=== PATIENT | female | born 1975 | race Caucasian/White ===

== ENCOUNTER 2016-10-18 14:06 | Emergency (ER) | payer OTHER ==
[~2016-10-18] VITALS: Wt 88.0 kg
[~2016-10-18 14:06] MED LIST: CEPH-443 PO; DOCU-144 PO; FER325 PO; GABA300C16 PO; HYDR-906 PO; IBUP-1542 PO; IBUP400T22 PO; LORA-441 PO; METF500T4 PO; OMEP40CA6 PO; SITA100T8 PO; VALA100057 PO
[2016-10-18 15:44] LABS: ADD UMIC NO; URINE BILIRUBIN (Dip) NEGATIVE (NEGATIVE); URINE BLOOD (Dip) NEGATIVE (NEGATIVE); URINE COLOR LT. YELLOW (YELLOW); URINE GLUCOSE (Dip) NEGATIVE (NEGATIVE); URINE KETONES (Dip) NEGATIVE (NEGATIVE); URINE LEUKOCYTE ESTERASE (Dip) NEGATIVE (NEGATIVE); URINE NITRITE (Dip) NEGATIVE (NEGATIVE); URINE TOTAL PROTEIN (Dip) NEGATIVE (NEGATIVE); URINE UROBILINOGEN (Dip) 0.2 E.U./dL (0.1-1.0)
[2016-10-18 15:59] LABS: ADD SCAN DIFF NO
[2016-10-18 16:01] LABS: BASOPHILS % 0.5 % (0.0-2.0); EOSINOPHILS # 0.1 10^3/ul (0.0-0.5); EOSINOPHILS % 1.2 % (0.0-7.0); HEMATOCRIT 35.9 % (37.0-47.0); HEMOGLOBIN 11.9 g/dl (12.0-16.0); LYMPHOCYTES # 2.2 10^3/ul (0.8-2.9); LYMPHOCYTES % 27.6 % (15.0-51.0); MEAN CORPUSCULAR HGB CONC 33.1 g/dl (32.0-37.0); MEAN CORPUSCULAR VOLUME 84.5 fl (82.0-101.0); MEAN PLATELET VOLUME 9.9 fl (7.4-10.4); MONOCYTE # 0.5 10^3/ul (0.3-0.9); MONOCYTES % 6.7 % (0.0-11.0); NEUTROPHILS % 63.7 % (39.0-77.0); PLATELET COUNT 286 10^3/UL (140-415); RED BLOOD COUNT 4.25 10^6/ul (4.20-5.40); RED CELL DISTRIBUTION WIDTH 16.6 % (11.5-14.5); WHITE BLOOD COUNT 7.8 10^3/ul (4.8-10.8)
[2016-10-18 16:24] LABS: ALBUMIN 4.6 g/dl (3.3-4.9); ALBUMIN/GLOBULIN RATIO 1.27; BILIRUBIN,INDIRECT 0.4 mg/dl (0-1.1); BILIRUBIN,TOTAL 0.4 mg/dl (0.2-1.3); CALCIUM 9.3 mg/dl (8.4-10.2); CREATININE 0.44 mg/dl (0.44-1.00); POTASSIUM 3.9 mmol/L (3.5-5.1); TOTAL PROTEIN 8.2 g/dl (6.1-8.1)
[2016-10-18] MEDS ORDERED: BEN25 PO (16:32)
--- NOTE | 2016-10-18 16:35 | ERD ---
ER Documentation Chief Complaint Date/Time DATE: 10/18/16 TIME: 16:33 Chief Complaint DIZZINESS, NUMBNESS, ONSET 2 DAYS, HEADACHE HPI This 5-year-old female presents with sensation of swelling on her face and hands with some numbness in her face and hands. She has mild bitemporal headache. She denies any fevers, vomiting, shortness of the chest pain. Patient has a history of anemia which improved with iron treatment. Her last blood work was approximately 2 months ago at 11 by report. She denies any current significant vaginal bleeding, vomiting, abdominal pain, urinary complaints. ROS All systems reviewed and are negative except as per history of present illness. Medications Home Meds Active Scripts Diphenhydramine Hcl* (Benadryl*) 25 Mg Cap, 25 MG PO Q6, #15 CAP Prov:MONIKA SEARS MD 10/18/16 Ibuprofen* (Motrin*) 600 Mg Tab, 600 MG PO Q6H Y for PAIN AND OR ELEVATED TEMP, #30 TAB Prov:JUAN ALVA NP 05/19/16 Cephalexin* (Keflex*) 500 Mg Capsule, 500 MG PO QID for 7 Days, CAP Prov:JUAN ALVA NP 05/19/16 Docusate Sodium* (Colace*) 100 Mg Capsule, 100 MG PO TID, #30 CAP Prov:JUAN ALVA NP 05/19/16 Ferrous Sulfate* (Ferrous Sulfate*) 325 Mg Tabec, 325 MG PO BID, #60 TAB Prov:JUAN ALVA NP 05/19/16 Ibuprofen* (Motrin*) 600 Mg Tab, 600 MG PO Q6, #30 TAB Prov:FREDIS GARCIA PA-C 05/11/16 Hydrocodone/Acetaminophen ([place] 5-325 Tablet) 1 Each Tablet, 1 TAB PO Q6H Y for PAIN, #20 TAB Prov:FREDIS GARCIA PA-C 05/11/16 Hydrocodone/Acetaminophen ([place] 5-325 Tablet) 1 Each Tablet, 1 TAB PO Q6H Y for PAIN, #20 TAB Prov:JUAN ALVA NP 02/14/16 Ibuprofen* (Motrin*) 400 Mg Tab, 400 MG PO Q6H Y for PAIN AND OR ELEVATED TEMP, #30 TAB Prov:JUAN ALVA NP 02/14/16 Gabapentin* (Gabapentin*) 300 Mg Capsule, 300 MG PO QHS, #20 CAP Take 1 tablet at night on day one, then take 1 tablet twice a day on day [address] [facility] for patient Prov:PATSY HIDALGO PA-C 12/30/15 Ibuprofen* (Motrin*) 600 Mg Tab, 600 MG PO Q6H Y for PAIN AND OR ELEVATED TEMP, #30 TAB Prov:PATSY HIDALGO PA-C 12/30/15 Ibuprofen* (Motrin*) 600 Mg Tab, 600 MG PO Q6, #14 TAB Prov:MONIKA SEARS MD 12/18/15 Lorazepam* (Ativan*) 0.5 Mg Tablet, 0.5 MG PO Q8, #10 TAB Prov:MONIKA SEARS MD 12/18/15 Valacyclovir Hcl* (Valtrex*) 1,000 Mg Tablet, 1000 MG PO TID for 7 Days Prov:ARI CALLAWAY 01/05/15 Reported Medications Omeprazole* (Omeprazole*) 40 Mg Capsule.dr, 40 MG PO DAILY, CAP 10/28/14 Metformin* (Glucophage*) 500 Mg Tab, 500 MG PO WITH MEALS, TAB 10/28/14 Sitagliptin* (Januvia*) 100 Mg Tablet, 100 MG PO DAILY, TAB 10/28/14 Allergies Allergies: Coded Allergies: No Known Drug Allergy (Verified Allergy, Unknown, 05/19/16) PMhx/Soc History of Surgery: Yes (CHOLECYSTECTOMY, C/SECTION, UMB HERNIA) Anesthesia Reaction: No Hx Neurological Disorder: No Hx Respiratory Disorders: No Hx Cardiac Disorders: No Hx Psychiatric Problems: No Hx Miscellaneous Medical Probl: Yes (DM) Hx Alcohol Use: No Hx Substance Use: No Hx Tobacco Use: No Smoking Status: Never smoker Physical Exam Vitals Vital Signs Date Time Temp Pulse Resp B/P Pulse Ox O2 Delivery O2 Flow Rate FiO2 10/18/16 14:10 98.1 85 17 149/79 98 Physical Exam Const: [] Alert, [id number] per Head: Atraumatic Eyes: Normal Conjunctiva ENT: Normal External Ears, Nose and Mouth. Possible very minimal swelling of the face but may be normal variant. Neck: Full range of motion..~ No meningismus. Resp: Clear to auscultation bilaterally Cardio: Regular rate and rhythm, no murmurs Abd: Soft, non tender, non distended. Normal bowel sounds Skin: No petechiae or rashes Back: No midline or flank tenderness Ext: No cyanosis, or edema. Again possible very minimal swelling bilateral hands and upper extremities but may be normal variant. There is no erythema or warmth or restricted range of motion weakness Neur: Awake and alert Psych: Normal Mood and Affect Result Diagram: 10/18/16 1540 10/18/16 1529 Results 24 hrs Laboratory Tests Test 10/18/16 15:29 10/18/16 15:36 10/18/16 15:40 Sodium Level 135mmol/L Potassium Level 3.9mmol/L Chloride Level 104mmol/L Carbon Dioxide Level 22mmol/L Anion Gap 13 Blood Urea Nitrogen 9mg/dl Creatinine 0.44mg/dl Glucose Level 161mg/dl Calcium Level 9.3mg/dl Total Bilirubin 0.4mg/dl Direct Bilirubin 0.00mg/dl Indirect Bilirubin 0.4mg/dl Aspartate Amino Transf (AST/SGOT) 79IU/L Alanine Aminotransferase (ALT/SGPT) 55IU/L Alkaline Phosphatase 74IU/L Total Protein 8.2g/dl Albumin 4.6g/dl Globulin 3.60g/dl Albumin/Globulin Ratio 1.27 Urine Color LT. YELLOW Urine Clarity CLEAR Urine pH 6.5 Urine Specific [place] <=1.005 Urine Ketones NEGATIVE Urine Nitrite NEGATIVE Urine Bilirubin NEGATIVE Urine Urobilinogen 0.2 E.U./dL Urine Leukocyte Esterase NEGATIVE Urine Hemoglobin NEGATIVE Urine Glucose NEGATIVE% Urine Total Protein NEGATIVE White Blood Count 7.810^3/ul Red Blood Count 4.2510^6/ul Hemoglobin 11.9g/dl Hematocrit 35.9% Mean Corpuscular Volume 84.5fl Mean Corpuscular Hemoglobin 28.0pg Mean Corpuscular Hemoglobin Concent 33.1g/dl Red Cell Distribution Width 16.6% Platelet Count 26614^3/UL Mean Platelet Volume 9.9fl Neutrophils % 63.7% Lymphocytes % 27.6% Monocytes % 6.7% Eosinophils % 1.2% Basophils % 0.5% Nucleated Red Blood Cells % 0.0/100WBC Neutrophils # 5.010^3/ul Lymphocytes # 2.210^3/ul Monocytes # 0.510^3/ul Eosinophils # 0.110^3/ul Basophils # 0.010^3/ul Nucleated Red Blood Cells # 0.010^3/ul Procedures/MDM CBC shows a hemoglobin 11.9, otherwise normal. CMP is normal. Urine shows no protein, leukocytes, nitrites or glucose. Patient presents with some mild swelling in the face and hands bilaterally with likely secondary paresthesias. Signs or symptoms do not suggest central nervous system lesions, hypOproteinemia sepsis, CHF, anemia, anaphylaxis, respiratory distress, additional emergent causes of presenting complaints. Patient was treated with Benadryl and further observation at home. The patient was stable with no new complaints during the ER course. Clinically, there is no current evidence to suggest meningitis, sepsis, acute abdomen, pneumonia, acute coronary syndrome, pulmonary embolism, or any other emergent condition appearing to require further evaluation or hospitalization. The patient should certainly return for any new or worsening symptoms per the aftercare instructions. They should otherwise follow-up with her primary care doctor for reevaluation this week. Departure Diagnosis: Primary Impression: Swelling Condition: Stable Patient Instructions: Symptoms With Uncertain Cause Referrals: [facility] Usted se hawk hecho un examen mdico de control que le indica que no est en marck condicin que requiera tratamiento urgente en el Departamento de Emergencia. Un estudio ms profundo y el tratamiento de mclaughlin condicin pueden esperar sin ningn riesgo hasta que usted sea atendida/o en el consultorio de mclaughlin mdico o marck cl paris. Es responsabilidad suya arreglar marck vinay para el seguimiento del elisa. MANEJO DE CONDICIONES NO URGENTES EN EL FUTURO 1) Si usted tiene un mdico de atencin primaria: Usted debera llamar a mclaughlin mdico de atencin primaria antes de venir al departamento de emergencia. Despus de las horas de consultorio, mclaughlin doctor o mclaughlin asociado/a est disponible por telfono. El mdico o enfermero de destiny en el servicio telefnico puede asesorarle por paras medio para atender el problema, o elisa contrario se puede programar marck vinay. 2) Si usted no tiene un mdico de atencin primaria: Llame al mdico o clnica de referencia que aparece abajo ingrid las horas de consultorio para hacer marck vinay para que le vean. CLINICAS: [facility] [phone] [facility] [phone] [facility] [phone] [facility] [phone] [place] [phone] [facility]. [phone] [address] Additional Instructions: Examines normal hoy. POSIBLEMENTE ALLERGIA. Cheque otro vez con mclaughlin doctor primario en el proximo le or regresa para mas o nueva simptomas. MONIKA SEARS MD Oct 18, 2016 16:35
[2016-10-18 16:38] VITALS: BP 126/74; PULSE 77; RESP 19; TEMP 98.2
== END 2016-10-18 16:39 | disposition home or self-care (01) ==
LOC: FTE 14:06
DX: M79.89 Other specified soft tissue disorders (principal); E11.9 Type 2 diabetes mellitus without complications; Z79.84 Long term (current) use of oral hypoglycemic drugs
CPT/HCPCS: 80053; 81003; 85025; 99283

== ENCOUNTER 2016-12-12 13:53 | Emergency (ER) | payer OTHER ==
[~2016-12-12] VITALS: Ht 162.6 cm; Wt 86.5 kg
[~2016-12-12 13:53] MED LIST changes: +BEN25 PO
[2016-12-12 13:56] VITALS: Ht 162.6 cm; Wt 86.5 kg
[2016-12-12 15:42] LABS: ALBUMIN 4.5 g/dl (3.3-4.9); ALBUMIN/GLOBULIN RATIO 1.12; BILIRUBIN,INDIRECT 0.3 mg/dl (0-1.1); BILIRUBIN,TOTAL 0.3 mg/dl (0.2-1.3); CALCIUM 9.6 mg/dl (8.4-10.2); CREATININE 0.5 mg/dl (0.44-1.00); POTASSIUM 4.2 mmol/L (3.5-5.1); TOTAL PROTEIN 8.5 g/dl (6.1-8.1)
[2016-12-12 17:02] LABS: BASOPHILS % 0.5 % (0.0-2.0); EOSINOPHILS # 0.1 10^3/ul (0.0-0.5); EOSINOPHILS % 0.7 % (0.0-7.0); HEMATOCRIT 36.3 % (37.0-47.0); HEMOGLOBIN 12.1 g/dl (12.0-16.0); LYMPHOCYTES % 24.9 % (15.0-51.0); MEAN CORPUSCULAR HEMOGLOBIN 28.8 pg (29.0-33.0); MEAN CORPUSCULAR HGB CONC 33.3 g/dl (32.0-37.0); MEAN CORPUSCULAR VOLUME 86.4 fl (82.0-101.0); MEAN PLATELET VOLUME 10.8 fl (7.4-10.4); MONOCYTE # 0.6 10^3/ul (0.3-0.9); MONOCYTES % 6.8 % (0.0-11.0); NEUTROPHIL # 5.4 10^3/ul (1.6-7.5); NEUTROPHILS % 66.7 % (39.0-77.0); PLATELET COUNT 300 10^3/UL (140-415); WHITE BLOOD COUNT 8.1 10^3/ul (4.8-10.8)
--- NOTE | 2016-12-12 17:08 | ERD ---
ER Documentation Chief Complaint Date/Time DATE: 12/12/16 TIME: 17:08 Chief Complaint bilat leg numbness x today HPI This is a 41-year-old female with history of diabetes type 2 on metformin and neuropathy presenting to the emergency department complaining of feeling numbness and tension in her legs bilaterally. Patient states that she feels like as if there is cramping in her upper thighs bilaterally rating it 9 out of 10. She states that originally she had numbness in her right lower leg but now she feels in her left leg. Patient denies any other neuro deficits. She denies any weakness or restricted range of motion ROS All systems reviewed and are negative except as per history of present illness. Medications Home Meds Active Scripts Diphenhydramine Hcl* (Benadryl*) 25 Mg Cap, 25 MG PO Q6, #15 CAP Prov:MONIKA SEARS MD 10/18/16 Ibuprofen* (Motrin*) 600 Mg Tab, 600 MG PO Q6H Y for PAIN AND OR ELEVATED TEMP, #30 TAB Prov:JUAN ALVA NP 05/19/16 Cephalexin* (Keflex*) 500 Mg Capsule, 500 MG PO QID for 7 Days, CAP Prov:JUAN ALVA NP 05/19/16 Docusate Sodium* (Colace*) 100 Mg Capsule, 100 MG PO TID, #30 CAP Prov:JUAN ALVA NP 05/19/16 Ferrous Sulfate* (Ferrous Sulfate*) 325 Mg Tabec, 325 MG PO BID, #60 TAB Prov:JUAN ALVA NP 05/19/16 Ibuprofen* (Motrin*) 600 Mg Tab, 600 MG PO Q6, #30 TAB Prov:FREDIS GARCIA PA-C 05/11/16 Hydrocodone/Acetaminophen ([place] 5-325 Tablet) 1 Each Tablet, 1 TAB PO Q6H Y for PAIN, #20 TAB Prov:FREDIS GARCIA PA-C 05/11/16 Hydrocodone/Acetaminophen ([place] 5-325 Tablet) 1 Each Tablet, 1 TAB PO Q6H Y for PAIN, #20 TAB Prov:JUAN ALVA NP 02/14/16 Ibuprofen* (Motrin*) 400 Mg Tab, 400 MG PO Q6H Y for PAIN AND OR ELEVATED TEMP, #30 TAB Prov:JUAN ALVA NP 02/14/16 Gabapentin* (Gabapentin*) 300 Mg Capsule, 300 MG PO QHS, #20 CAP Take 1 tablet at night on day one, then take 1 tablet twice a day on day 2 Please translate to turkish for patient Prov:PATSY HIDALGO PA-C 12/30/15 Ibuprofen* (Motrin*) 600 Mg Tab, 600 MG PO Q6H Y for PAIN AND OR ELEVATED TEMP, #30 TAB Prov:PATSY HIDALGO PA-C 12/30/15 Ibuprofen* (Motrin*) 600 Mg Tab, 600 MG PO Q6, #14 TAB Prov:MONIKA SEARS MD 12/18/15 Lorazepam* (Ativan*) 0.5 Mg Tablet, 0.5 MG PO Q8, #10 TAB Prov:MONIKA SEARS MD 12/18/15 Valacyclovir Hcl* (Valtrex*) 1,000 Mg Tablet, 1000 MG PO TID for 7 Days Prov:ARI CALLAWAY 01/05/15 Reported Medications Omeprazole* (Omeprazole*) 40 Mg Capsule.dr, 40 MG PO DAILY, CAP 10/28/14 Metformin* (Glucophage*) 500 Mg Tab, 500 MG PO WITH MEALS, TAB 10/28/14 Sitagliptin* (Januvia*) 100 Mg Tablet, 100 MG PO DAILY, TAB 10/28/14 Allergies Allergies: Coded Allergies: No Known Drug Allergy (Verified Allergy, Unknown, 12/12/16) PMhx/Soc History of Surgery: Yes (CHOLECYSTECTOMY, C/SECTION, UMB HERNIA) Anesthesia Reaction: No Hx Neurological Disorder: No Hx Respiratory Disorders: No Hx Cardiac Disorders: No Hx Psychiatric Problems: No Hx Miscellaneous Medical Probl: Yes (DM) Hx Alcohol Use: No Hx Substance Use: No Hx Tobacco Use: No Physical Exam Vitals Vital Signs Date Time Temp Pulse Resp B/P Pulse Ox O2 Delivery O2 Flow Rate FiO2 12/12/16 17:09 97.3 72 16 140/78 97 Room Air 12/12/16 13:56 97.3 79 18 126/73 79 Physical Exam GENERAL: well-developed/well-nourished, in no apparent distress, non-toxic appearing HENT: NC/AT, bilateral tympanic membrane is normal with good cone of light, nares patent, oropharynx clear without exudates EYES: Conjunctiva normal, PERRLA, EOMI, no nystagmus noted NECK: Supple, no lymphadenopathy PULM: CTA bilaterally, no rales, rhonchi, or wheezing heard CV: Normal S1S2, RRR, good capillary refill GI: Soft, non-distended, normal bowel sounds, non-tender BACK: No midline tenderness, no masses, No CVAT EXT: No clubbing, cyanosis, or edema NEURO: Alert and orientated to person, place, and time. CN II-IIX intact. Gait and coordination were normal. Hand language interpreter strength were equal and within normal limits SKIN: Intact, normal turgor Normal exam PSYCH: Normal mood and mentation, patient denied SI Result Diagram: 12/12/16 1513 12/12/16 1513 Results 24 hrs Laboratory Tests Test 12/12/16 15:13 White Blood Count 8.110^3/ul Red Blood Count 4.2010^6/ul Hemoglobin 12.1g/dl Hematocrit 36.3% Mean Corpuscular Volume 86.4fl Mean Corpuscular Hemoglobin 28.8pg Mean Corpuscular Hemoglobin Concent 33.3g/dl Red Cell Distribution Width 14.0% Platelet Count 00828^3/UL Mean Platelet Volume 10.8fl Neutrophils % 66.7% Lymphocytes % 24.9% Monocytes % 6.8% Eosinophils % 0.7% Basophils % 0.5% Nucleated Red Blood Cells % 0.0/100WBC Neutrophils # 5.410^3/ul Lymphocytes # 2.010^3/ul Monocytes # 0.610^3/ul Eosinophils # 0.110^3/ul Basophils # 0.010^3/ul Nucleated Red Blood Cells # 0.010^3/ul Sodium Level 138mmol/L Potassium Level 4.2mmol/L Chloride Level 103mmol/L Carbon Dioxide Level 22mmol/L Anion Gap 17 Blood Urea Nitrogen 11mg/dl Creatinine 0.50mg/dl Glucose Level 233mg/dl Calcium Level 9.6mg/dl Total Bilirubin 0.3mg/dl Direct Bilirubin 0.00mg/dl Indirect Bilirubin 0.3mg/dl Aspartate Amino Transf (AST/SGOT) 86IU/L Alanine Aminotransferase (ALT/SGPT) 64IU/L Alkaline Phosphatase 73IU/L Total Protein 8.5g/dl Albumin 4.5g/dl Globulin 4.00g/dl Albumin/Globulin Ratio 1.12 Procedures/MDM This is a 41-year-old female with a history of diabetes type 2 on metformin and neuropathy presents to the emergency department complaining of bilateral leg numbness which is likely due to her neuropathy. There was no evidence of any feet ulcers or infections on examination. There was no evidence of elevated creatinine that can be due to metformin. Patient's electro lites are normal. CBC did not show evidence of leukocytosis or anemia. Patient was instructed to continue gabapentin and to follow-up with her primary care physician for possible medication change. Discussed return to the ER for any worsening symptoms patient understands and agrees to this plan Departure Diagnosis: Primary Impression: Diabetic neuropathy Diabetes mellitus type: other specified (including MARIAN) Diabetes mellitus complication detail: diabetic polyneuropathy Qualified Code: E13.42 - Diabetic polyneuropathy associated with other specified diabetes mellitus Additional Impression: Numbness in feet Condition: Stable Patient Instructions: What Is Peripheral Neuropathy?, Treating Peripheral Neuropathy, Neuropathy, Peripheral Additional Instructions: Visite a mclaughlin braeden calabrese para un EXAMEN.Regrese a estas instalaciones si no se mejora stephanie esperbamos o stephanie le dijimos. Regrese a estas instalaciones si no se mejora stephanei esperbamos o stephanie le dijimos. PATSY HIDALGO PA-C Dec 12, 2016 17:08
[2016-12-12 17:09] VITALS: BP 140/78; PULSE 72; RESP 16; TEMP 97.3
== END 2016-12-12 17:10 | disposition home or self-care (01) ==
LOC: FTE 13:53
DX: E13.42 Other specified diabetes mellitus with diabetic polyneuropathy (principal); Z79.84 Long term (current) use of oral hypoglycemic drugs
CPT/HCPCS: 36415; 80053; 85025; Z7502; 99283

== ENCOUNTER 2017-02-21 20:58 | Emergency (ER) | payer OTHER ==
[~2017-02-21] VITALS: Ht 160 cm; Wt 87.5 kg
[2017-02-21 21:00] VITALS: Ht 160 cm; Wt 87.5 kg
--- NOTE | 2017-02-22 00:18 | ERD ---
ER Documentation Chief Complaint Date/Time DATE: 02/22/17 TIME: 00:14 Chief Complaint back pain x 2 weeks, denies injury HPI Patient is a 41-year-old female who presents with sudden onset, intermittent bilateral back pain for the last 2 weeks. She denies dysuria, fever, leg weakness or numbness. She reports that for the last 2 days she has episodes of back pain radiating to her chest that last less than 1 minute at the time and often only a few seconds. It feels like a tightness. She denies shortness of breath, cough, radiation of pain. She denies vomiting or diaphoresis. She denies fever. She has been taking ibuprofen without significant relief. She denies taking contraceptive pills or hormone replacement. She denies recent surgery. ROS All systems reviewed and are negative except as per history of present illness. Medications Home Meds Active Scripts Cyclobenzaprine Hcl* (Cyclobenzaprine Hcl*) 10 Mg Tablet, 10 MG PO TID, #15 TAB Prov:SANDY COSME MD 02/22/17 Ferrous Sulfate* (Ferrous Sulfate*) 325 Mg Tabec, 325 MG PO BID, #60 TAB Prov:JUAN ALVA NP 05/19/16 Gabapentin* (Gabapentin*) 300 Mg Capsule, 300 MG PO QHS, #20 CAP Take 1 tablet at night on day one, then take 1 tablet twice a day on day 2 Please translate to vietnamese for patient Prov:PATSY HIDALGO PA-C 12/30/15 Ibuprofen* (Motrin*) 600 Mg Tab, 600 MG PO Q6H Y for PAIN AND OR ELEVATED TEMP, #30 TAB Prov:PATSY HIDALGO PA-C 12/30/15 Reported Medications Omeprazole* (Omeprazole*) 40 Mg Capsule.dr, 40 MG PO DAILY, CAP 10/28/14 Metformin* (Glucophage*) 500 Mg Tab, 500 MG PO BID, TAB 10/28/14 Sitagliptin* (Januvia*) 100 Mg Tablet, 100 MG PO DAILY, TAB 10/28/14 Discontinued Scripts Diphenhydramine Hcl* (Benadryl*) 25 Mg Cap, 25 MG PO Q6, #15 CAP Prov:MONIKA SEARS MD 10/18/16 Ibuprofen* (Motrin*) 600 Mg Tab, 600 MG PO Q6H Y for PAIN AND OR ELEVATED TEMP, #30 TAB Prov:JUAN ALVA NP 05/19/16 Cephalexin* (Keflex*) 500 Mg Capsule, 500 MG PO QID for 7 Days, CAP Prov:JUAN ALVA NP 05/19/16 Docusate Sodium* (Colace*) 100 Mg Capsule, 100 MG PO TID, #30 CAP Prov:JUAN ALVA NP 05/19/16 Ibuprofen* (Motrin*) 600 Mg Tab, 600 MG PO Q6, #30 TAB Prov:FREDIS GARCIA-C 05/11/16 Hydrocodone/Acetaminophen ([place] 5-325 Tablet) 1 Each Tablet, 1 TAB PO Q6H Y for PAIN, #20 TAB Prov:FREDIS GARCIA-C 05/11/16 Hydrocodone/Acetaminophen ([place] 5-325 Tablet) 1 Each Tablet, 1 TAB PO Q6H Y for PAIN, #20 TAB Prov:JUAN ALVA NP 02/14/16 Ibuprofen* (Motrin*) 400 Mg Tab, 400 MG PO Q6H Y for PAIN AND OR ELEVATED TEMP, #30 TAB Prov:JUAN ALVA NP 02/14/16 Ibuprofen* (Motrin*) 600 Mg Tab, 600 MG PO Q6, #14 TAB Prov:MONIKA SEARS MD 12/18/15 Lorazepam* (Ativan*) 0.5 Mg Tablet, 0.5 MG PO Q8, #10 TAB Prov:MONIKA SEARS MD 12/18/15 Valacyclovir Hcl* (Valtrex*) 1,000 Mg Tablet, 1000 MG PO TID for 7 Days Prov:ARI CALLAWAY 01/05/15 Allergies Allergies: Coded Allergies: No Known Drug Allergy (Unverified Allergy, Unknown, 02/22/17) PMhx/Soc Past medical history: Diabetes mellitus Past surgical history: Cholecystectomy, , hernia Social history: Denies tobacco, alcohol or illicit drugs. History of Surgery: Yes (CHOLECYSTECTOMY, C/SECTION, UMB HERNIA) Anesthesia Reaction: No Hx Neurological Disorder: No Hx Respiratory Disorders: No Hx Cardiac Disorders: No Hx Psychiatric Problems: No Hx Miscellaneous Medical Probl: Yes (DM) Hx Alcohol Use: No Hx Substance Use: No Hx Tobacco Use: No Smoking Status: Never smoker FmHx Family History: diabetes, No coronary disease Physical Exam Vitals Vital Signs Date Time Temp Pulse Resp B/P Pulse Ox O2 Delivery O2 Flow Rate FiO2 02/22/17 03:49 98.0 81 20 134/73 99 Room Air 02/22/17 02:30 73 18 122/81 100 Room Air 02/22/17 00:37 98.3 20 137/73 99 Room Air 02/21/17 21:00 98.3 85 20 132/73 99 Physical Exam Const: Alert, no acute distress Head: Atraumatic Eyes: Normal Conjunctiva, No pallor, no icterus ENT: Normal External Ears, Nose and Mouth. Mucous membranes moist Neck: Full range of motion..~ No meningismus. No JVD Resp: Clear to auscultation bilaterally, No wheezes, no rales Cardio: Regular rate and rhythm, no murmurs Abd: Soft, non tender, non distended. Skin: No petechiae or rashes Back: No midline or flank tenderness, No CVA tenderness Ext: No cyanosis, or edema, 2+ pulses in 4 extremities without delay Neur: Awake and alert, Cranial nerves II through XII intact bilaterally, strength and sensation full in 4 extremities. Psych: Normal Mood and Affect Result Diagram: 02/22/17 0005 02/22/17 0022 Results 24 hrs Laboratory Tests Test 02/21/17 23:21 02/22/17 00:05 02/22/17 00:22 02/22/17 01:50 Serum HCG, Qualitative NEGATIVE White Blood Count 10.110^3/ul Red Blood Count 4.1010^6/ul Hemoglobin 9.5g/dl Hematocrit 31.8% Mean Corpuscular Volume 77.6fl Mean Corpuscular Hemoglobin 23.2pg Mean Corpuscular Hemoglobin Concent 29.9g/dl Red Cell Distribution Width 19.4% Platelet Count 32528^3/UL Mean Platelet Volume 11.1fl Neutrophils % 61.2% Lymphocytes % 28.3% Monocytes % 7.5% Eosinophils % 1.3% Basophils % 0.4% Nucleated Red Blood Cells % 0.4/100WBC Neutrophils # 6.210^3/ul Lymphocytes # 2.910^3/ul Monocytes # 0.810^3/ul Eosinophils # 0.110^3/ul Basophils # 0.010^3/ul Nucleated Red Blood Cells # 0.010^3/ul Sodium Level 137mmol/L Potassium Level 3.9mmol/L Chloride Level 102mmol/L Carbon Dioxide Level 28mmol/L Anion Gap 11 Blood Urea Nitrogen 11mg/dl Creatinine 0.62mg/dl Glucose Level 150mg/dl Calcium Level 9.6mg/dl Troponin I < 0.012ng/ml Urine Color YELLOW Urine Clarity CLOUDY Urine pH 6.0 Urine Specific [place] 1.005 Urine Ketones NEGATIVEmg/dL Urine Nitrite NEGATIVEmg/dL Urine Bilirubin NEGATIVEmg/dL Urine Urobilinogen NEGATIVEmg/dL Urine Leukocyte Esterase 2+Javier/ul Urine Microscopic RBC 2/HPF Urine Microscopic WBC 16/HPF Urine Squamous Epithelial Cells MODERATE/HPF Urine Amorphous Crystals FEW/HPF Urine Bacteria FEW/HPF Urine Hemoglobin 2+mg/dL Urine Glucose NEGATIVEmg/dL Urine Total Protein NEGATIVEmg/dl Procedures/MDM EKG read by me: Time 2321, rate 74 Rhythm: Normal sinus [place]: Normal Intervals: Normal ST-T waves: no ischemic changes Ectopy: No Q-waves: No Impression: No evidence of ischemia or arrhythmia EKG read by me: Time 0050, rate 76 Rhythm: Normal sinus [place]: Normal Intervals: Normal ST-T waves: no ischemic changes Ectopy: No Q-waves: No Impression: No evidence of ischemia or arrhythmia, no change compared with prior. MDM: Patient is a 41-year-old female who presents with intermittent acute chest pain for 2 days in the setting of intermittent thoracic back pain for 2 weeks. The patient states that her chest pain radiates from the back and his bilateral , and lasts a few seconds to a maximum of 1 minute. She does not have associated shortness of breath. She is PERC negative. She has 2 nonischemic EKGs and a negative troponin. There are no features that are concerning for thoracic aortic dissection. She has no CVA tenderness, fever or vomiting to suggest pyelonephritis. Her urinalysis has a few leukocytes but many epithelial cells, and the patient denies urinary symptoms. I will send a culture and have advised her to follow-up in the next 3 days. Advised the patient to return to the ER for chest pain lasting more than 5 minutes at a time. She has no neurologic symptoms associated with her back pain. She had a small amount of blood in her urine, but states that she is finishing her menstrual period currently. I have low suspicion for kidney stone. I suspect that she may be having muscle spasm with pain radiating to the chest involving the paraspinal muscles and thoracic muscles. I will give her a prescription for Flexeril, and have advised her to follow-up with her PMD if symptoms persist. Departure Diagnosis: Primary Impression: Back pain Back pain location: thoracic back pain Chronicity: acute Back pain laterality: bilateral Qualified Code: M54.6 - Acute bilateral thoracic back pain Additional Impression: Atypical chest pain Condition: SANDY Dhillon MD Feb 22, 2017 00:18
[2017-02-22 00:36] LABS: BASOPHILS % 0.4 % (0.0-2.0); EOSINOPHILS # 0.1 10^3/ul (0.0-0.5); EOSINOPHILS % 1.3 % (0.0-7.0); HEMATOCRIT 31.8 % (37.0-47.0); HEMOGLOBIN 9.5 g/dl (12.0-16.0); LYMPHOCYTES # 2.9 10^3/ul (0.8-2.9); LYMPHOCYTES % 28.3 % (15.0-51.0); MEAN CORPUSCULAR HEMOGLOBIN 23.2 pg (29.0-33.0); MEAN CORPUSCULAR HGB CONC 29.9 g/dl (32.0-37.0); MEAN CORPUSCULAR VOLUME 77.6 fl (82.0-101.0); MEAN PLATELET VOLUME 11.1 fl (7.4-10.4); MONOCYTE # 0.8 10^3/ul (0.3-0.9); MONOCYTES % 7.5 % (0.0-11.0); NEUTROPHIL # 6.2 10^3/ul (1.6-7.5); NEUTROPHILS % 61.2 % (39.0-77.0); NUCLEATED RED BLOOD CELLS% 0.4 /100WBC (0.0-0.0); PLATELET COUNT 383 10^3/UL (140-415); RED CELL DISTRIBUTION WIDTH 19.4 % (11.5-14.5); WHITE BLOOD COUNT 10.1 10^3/ul (4.8-10.8)
[2017-02-22 00:56] LABS: TROPONIN-I < 0.012 ng/ml (0.00-0.12)
[2017-02-22 00:59] LABS: ANION GAP 11 (8-16); BLOOD UREA NITROGEN 11 mg/dl (7-20); CALCIUM 9.6 mg/dl (8.4-10.2); CARBON DIOXIDE 28 mmol/L (21-31); CHLORIDE 102 mmol/L (97-110); CREATININE 0.62 mg/dl (0.44-1.00); GLUCOSE 150 mg/dl (70-220); POTASSIUM 3.9 mmol/L (3.5-5.1); SODIUM 137 mmol/L (135-144)
--- NOTE | 2017-02-22 01:27 | RADRPT ---
PROCEDURE: XR Chest. CLINICAL INDICATION: Chest pain TECHNIQUE: AP Portable chest. COMPARISON: 12/18/2015 FINDINGS: There is mild cardiomegaly. The lungs are clear. The osseous structures are unremarkable. IMPRESSION: No acute findings. RPTAT: HIKT .Luis Kan MD, Date Time Electronically viewed and signed by .Luis Kan MD, on 02/22/2017 01:27 .T/
[2017-02-22 03:11] LABS: ADD UMIC YES; UR AMORPHOUS CRYSTAL FEW /HPF (NONE SEEN); UR ASCORBIC ACID NEGATIVE (NEGATIVE); UR BACTERIA FEW /HPF (NONE SEEN); UR BILIRUBIN (Dip) NEGATIVE (NEGATIVE); UR BLOOD (Dip) 2+ mg/dL (NEGATIVE); UR CLARITY CLOUDY (CLEAR); UR COLOR YELLOW (YELLOW); UR GLUCOSE (Dip) NEGATIVE (NEGATIVE); UR KETONES (Dip) NEGATIVE (NEGATIVE); UR LEUKOCYTE ESTERASE (Dip) 2+ Leu/ul (NEGATIVE); UR NITRITE (Dip) NEGATIVE (NEGATIVE); UR RBC 2 /HPF (0-5); UR SPECIFIC GRAVITY (Dip) 1.005 (1.003-1.030); UR SQUAMOUS EPITHELIAL CELL MODERATE /HPF (FEW); UR TOTAL PROTEIN (Dip) NEGATIVE (NEGATIVE); UR UROBILINOGEN (Dip) NEGATIVE (NEGATIVE)
[2017-02-22] MEDS ORDERED: CYCL-319 PO (03:21)
[2017-02-22 03:49] VITALS: BP 134/73; PULSE 81; RESP 20; TEMP 98
== END 2017-02-22 03:52 | disposition home or self-care (01) ==
LOC: FTE 20:58 → E/R 02-22 03:52
DX: M54.6 Pain in thoracic spine (principal); R07.89 Other chest pain; E11.9 Type 2 diabetes mellitus without complications; Z79.84 Long term (current) use of oral hypoglycemic drugs
CPT/HCPCS: 36415; 71010; 80048; 81001; 84484; 84703; 85025; 87086; 93005; Z7502

== ENCOUNTER 2017-06-03 15:48 | Emergency (ER) | END 2017-06-03 20:45 | disposition home or self-care (01) ==

== ENCOUNTER 2018-02-10 14:07 | Emergency (ER) | END 2018-02-10 17:55 | disposition home or self-care (01) ==

== ENCOUNTER 2018-04-26 15:17 | Emergency (ER) | END 2018-04-26 18:08 | disposition home or self-care (01) ==

== ENCOUNTER 2018-12-08 22:13 | Emergency (ER) | payer OTHER ==
[~2018-12-08] VITALS: Wt 83.1 kg
[~2018-12-08 22:13] MED LIST changes: -BEN25 PO; -CEPH-443 PO; -DOCU-144 PO; +ERGO500013 PO; +HYDR-4011 PO; -HYDR-906 PO; -IBUP-1542 PO; -IBUP400T22 PO; -LORA-441 PO; -METF500T4 PO; -OMEP40CA6 PO; +PYRI50TA15 PO; +SITA100T11 PO; -SITA100T8 PO; -VALA100057 PO
[2018-12-08 22:28] VITALS: BP 133/59; PULSE 88; RESP 18
[2018-12-09] MEDS ORDERED: KETOROLAC 60 MG INJ IM STA (00:51)
[2018-12-09] MEDS ORDERED: HYDROCODONE/APAP (5/325) TAB PO ONE (01:00)
--- NOTE | 2018-12-09 01:11 | ERD ---
ER Documentation Chief Complaint Chief Complaint pain right leg since yesterday HPI 43-year-old female with history of sciatica on her right leg presents with complaint of right leg pain since yesterday. States that she takes gabapentin but the gabapentin has not been working. Patient states that she has diabetes and impaired kidney function. Note, she is told this to the nurse after the exam, initially denying impaired kidney function. patient is ambulatory. Denies chest pain, SOB, flank pain, dsyuria, hematuria, saddle numbness, incontinence, pain worse at night or when supine, weight loss, night sweats, fatigue, focal neurological defecits, recent bacterial infection, IV drug use, or immunosuppression. ROS All systems reviewed and are negative except as per history of present illness. Medications Home Meds Active Scripts Hydrocodone/Acetaminophen (Rea 5-325 Tablet) 1 Each Tablet, 1 TAB PO Q6H PRN for PAIN, #10 TAB Prov:ERICH DEL REAL 12/09/18 Reported Medications Ergocalciferol (Vitamin D2) (VITAMIN D2) 50,000 Unit Capsule, 98254 UNIT PO Q7D, CAP 04/26/18 Pyridoxine Hcl (Vitamin B6) 50 Mg Tab, 50 MG PO DAILY, TAB 04/26/18 Sitagliptin* (Januvia*) 100 Mg Tablet, 100 MG PO DAILY, #30 TAB 04/26/18 Gabapentin* (Gabapentin*) 300 Mg Capsule, 300 MG PO BID, #60 CAP 10/01/17 Ferrous Sulfate* (Ferrous Sulfate*) 325 Mg Tabec, 325 MG PO BID, TAB 10/01/17 Allergies Allergies: Coded Allergies: No Known Drug Allergy (Verified Allergy, Unknown, 04/26/18) PMhx/Soc History of Surgery: Yes (CS x1, Hernia repair) Anesthesia Reaction: No Hx Neurological Disorder: Yes (Diabetic neuropathy) Hx Respiratory Disorders: No Hx Cardiac Disorders: No Hx Psychiatric Problems: Yes (Anxiety) Hx Miscellaneous Medical Probl: Yes (Anemia, Heavy periods, DM) Hx Alcohol Use: No Hx Substance Use: No Hx Tobacco Use: No Smoking Status: Never smoker FmHx Family History: No diabetes, No coronary disease, No other Physical Exam Vitals Vital Signs Date Temp Pulse Resp B/P (MAP) Pulse Ox O2 O2 Flow FiO2 Time Delivery Rate 12/08/18 98.5 88 18 133/59 99 22:28 (83) Physical Exam Const: No acute distress Head: Atraumatic Eyes: Normal Conjunctiva ENT: Normal External Ears, Nose and Mouth. Neck: Full range of motion. No meningismus. Resp: Clear to auscultation bilaterally Cardio: Regular rate and rhythm, no murmurs Abd: Soft, non tender, non distended. Normal bowel sounds Skin: No petechiae or rashes Back: No midline or flank tenderness Ext: No cyanosis, or edema Neur: Awake and alert Psych: Normal Mood and Affect Left leg: Positive straight leg raise on the left leg. There is no edema, erythema, ecchymosis, or james deformity noted. Overlying skin is intact. Compartments are soft and warm. There is no pallor or cyanosis. Range of motion, distal pulses, and distal sensation is intact. There is normal cap refill. Results 24 hrs Laboratory Tests Test 12/09/18 01:00 POC Beta HCG, Qualitative NEGATIVE Current Medications Medications Dose Sig/Jovani Start Time Status Last (Trade) Ordered Route PRN Stop Time Admin Dose Reason Admin Ketorolac 60 mg ONCE STAT 12/09/18 DC Tromethamine IM 00:51 (Toradol) 12/09/18 01:05 1 tab ONCE ONCE 12/09/18 DC 12/09/18 Acetaminophen PO 01:00 01:02 / 12/09/18 01:01 Hydrocodone Bitart (Rea (5/325)) Procedures/MDM MDM: Patient's presentation sciatica. Patient initially denied any impaired kidney function so I ordered Toradol but then upon further questioning by the nurse she said that she does have impaired kidney infections the Toradol was canceled. Patient was given Rea. Patient given short course of Rea for pain. MDM: I have low suspicion for epidural abscess, cauda equina, abdominal aortic aneurysm, pyelonephritis, aortic dissection, spinal fracture, or other emergent conditions based on patient history and exam findings. Patient told if they experience leg weakness or numbness, or incontinence they need to return to the ER immediately. I have low suspicion for neurovascular compromise, compartment syndrome, fracture, osteomyelitis, septic joint, DVT, or other emergent condition. At this time, patient is stable for discharge and outpatient management. I have instructed the patient to follow-up with his/her primary care physician in 1-2 days. I have discussed with the patient the possibility of needing to see a specialist for further workup and imaging studie s if symptoms persist. I have instructed the patient to promptly return to the ER for any new or worsening symptoms including but not limited to increased pain, fever, nausea, vomiting, weakness or LOC. The patient and/or family expressed understanding of and agreement with this plan. All questions were answered. Home care instructions were provided. Communication with patient both during the exam and instructions for discharge were performed with using a car body mechanic . Patient gave verbal confirmation to the practitioner, through the car body mechanic, that they understood everything that was being said to them. DISCLAIMER: Inadvertent spelling and grammatical errors are likely due to EHR/dictation software use and do not reflect on the overall quality of patient care. Also, please note that the electronic time recorded on this note does not necessarily reflect the actual time of the patient encounter. Departure Diagnosis: Primary Impression: Sciatica Condition: Stable Patient Instructions: Understanding Sciatica, Back Pain W/ Sciatica Referrals: [facility] YOU HAVE RECEIVED A MEDICAL SCREENING EXAM AND THE RESULTS INDICATE THAT YOU DO NOT HAVE A CONDITION THAT REQUIRES URGENT TREATMENT IN THE EMERGENCY DEPARTMENT. FURTHER EVALUATION AND TREATMENT OF YOUR CONDITION CAN WAIT UNTIL YOU ARE SEEN IN YOUR DOCTORS OFFICE WITHIN THE NEXT 1-2 DAYS. IT IS YOUR RESPONSIBILITY TO MAKE AN APPOINTMENT FOR FOLOW-UP CARE. IF YOU HAVE A PRIMARY DOCTOR --you should call your primary doctor and schedule an appointment IF YOU DO NOT HAVE A PRIMARY DOCTOR YOU CAN CALL OUR PHYSICIAN REFERRAL HOTLINE AT IF YOU CAN NOT AFFORD TO SEE A PHYSICIAN YOU CAN CHOSE FROM THE FOLLOWING [facility] [id number] [facility]. [facility] [address] [facility] [address] [facility]. [facility] [address] [facility]. [facility] [address] [facility]. [facility]. [address] Additional Instructions: FOLLOW UP WITH YOUR PRIMARY CARE PHYSICIAN TOMORROW.Return to this facility if you are not improving as expected. ERICH DEL REAL Dec 09, 2018 01:11
== END 2018-12-09 02:06 | disposition home or self-care (01) ==
LOC: FTE 22:13
DX: M54.31 Sciatica, right side (principal); E11.9 Type 2 diabetes mellitus without complications; Z79.84 Long term (current) use of oral hypoglycemic drugs
CPT/HCPCS: 81025; J1885; Z7502; Z7610; 99283